=== PATIENT | male | born 1950 | race Caucasian/White ===

== ENCOUNTER 2017-01-30 14:48 | Observation (INO) | payer MEDICAID, MEDICARE ==
[~2017-01-30] VITALS: Ht 188 cm; Wt 117.0 kg
[~2017-01-30 14:48] MED LIST: HYDR12.56 PO; TRAM50 PO
[2017-01-30 15:01] VITALS: BP 196/99; PULSE 63; RESP 17; TEMP 98.4; O2SAT 96
--- NOTE | 2017-01-30 15:11 | PD ---
HPI Chief Complaint: Edema Time Seen by Provider: 15:10 Travel History International Travel<30 days: No Contact w/Intl Traveler<30days: No Traveled to known affect area: No History of Present Illness HPI 67-year-old male came to the emergency room with history of exertional dyspnea which as per the patient has been going on for a long time. He also has history of ankle swelling but is on Lasix that was started by his primary care almost a month ago and says it has been better lately. However patient went to see his primary care today and was sent to the emergency room in order to be checked out for this dyspnea and to rule out congestive heart failure and cardiomegaly. Patient did not have any insurance up until a month or 2 months ago. He saw his primary care few weeks ago and he was started on antihypertensive medication as well as Lasix. Patient has kept a log of all his blood pressure according in past 1 month and seems like it fluctuates between 140s to 180s. He says he is been taking the medications like is supposed to. No history of chest pain or syncopal episode. He has also been to see an car record clerk for his right I lesion which the car record clerk wants to operate on but he is waiting till the patient's blood pressure stabilized. Patient used to be a regular drinker but quit completely 2 weeks ago. He says he is not going through any withdrawal symptoms and feels okay. He was hypertensive in triage. [facility] Past Medical History Narrative Medical List of his past medical, surgical, social and family history was reviewed from the nursing note. Cardiovascular Problems: Yes (HTN) Hypertension: Yes Social History Alcohol Use: No Tobacco Use: No Substance Use: No Allergies-Medications (Allergen,Severity, Reaction): Coded Allergies: No Known Allergies (Unverified , 01/30/17) Comments No known drug allergies. Reported Meds & Prescriptions Reported Meds & Active Scripts Active Reported [BP med] Folic Acid 400 Mcg Tab 1 Mg PO DAILY Lisinopril 20 Mg Tab 20 Mg PO DAILY Potassium Chloride ER (Potassium Chloride) 10 Meq Cap 10 Meq PO DAILY Furosemide 20 Mg Tab 20 Mg PO DAILY Clonidine (Clonidine HCl) 0.1 Mg Tab 0.1 Mg PO BID Narrative Medication List of his home medications reviewed from the nursing note. Review of Systems Except as stated in HPI: all other systems reviewed are Neg Physical Exam Narrative GENERAL: Awake, alert, anxious, no obvious distress SKIN: Focused skin assessment warm/dry. Flushed skin HEAD: Atraumatic. Normocephalic. EYES: Pupils equal and round. No scleral icterus. Pterygium encroaching onto the one third of the cornea temporally with conjunctival injection on the right eye. ENT: No nasal bleeding or discharge. Mucous membranes pink and moist. NECK: Trachea midline. No JVD. CARDIOVASCULAR: Regular rate and rhythm. No murmur appreciated. RESPIRATORY: No accessory muscle use. Clear to auscultation. Breath sounds equal bilaterally. GASTROINTESTINAL: Abdomen soft, non-tender, nondistended. Hepatic and splenic margins not palpable. MUSCULOSKELETAL: No obvious deformities. No clubbing. No cyanosis. Pedal edema. NEUROLOGICAL: Awake and alert. No obvious cranial nerve deficits. Motor grossly within normal limits. Normal speech. PSYCHIATRIC: Appropriate mood and affect; insight and judgment normal. Data Data Last Documented VS Vital Signs Date Time Temp Pulse Resp B/P Pulse Ox O2 Delivery O2 Flow Rate FiO2 01/30/17 16:53 196/99 190/94 01/30/17 15:40 18 98 Room Air 01/30/17 15:01 98.4 63 Orders Electrocardiogram (01/30/17 15:19) Basic Metabolic Panel (Bmp) (01/30/17 15:19) B-Type Natriuretic Peptide (01/30/17 15:19) Ckmb (Isoenzyme) Profile (01/30/17 15:19) Complete Blood Count With Diff (01/30/17 15:19) Magnesium (Mg) (01/30/17 15:19) Prothrombin Time / Inr (Pt) (01/30/17 15:19) Act Partial Throm Time (Ptt) (01/30/17 15:19) Troponin I (01/30/17 15:19) Chest, Single Ap (01/30/17 15:19) Ecg Monitoring (01/30/17 15:19) Bilateral Bp Monitoring (01/30/17 15:19) Iv Access Insert/Monitor (01/30/17 15:19) Oximetry (01/30/17 15:19) Oxygen Administration (01/30/17 15:19) Sodium Chloride 0.9% Flush (Ns Flush) (01/30/17 15:30) Clonidine (Catapres) (01/30/17 17:00) Furosemide Inj (Lasix Inj) (01/30/17 17:00) Admit Order (Ed Use Only) (01/30/17 16:59) Labs Laboratory Tests Test 01/30/17 15:29 White Blood Count 8.0 TH/MM3 Red Blood Count 5.73 MIL/MM3 Hemoglobin 17.8 GM/DL Hematocrit 52.4 % Mean Corpuscular Volume 91.4 FL Mean Corpuscular Hemoglobin 31.1 PG Mean Corpuscular Hemoglobin 34.1 % Concent Red Cell Distribution Width 12.1 % Platelet Count 124 TH/MM3 Mean Platelet Volume 10.5 FL Neutrophils (%) (Auto) 49.3 % Lymphocytes (%) (Auto) 39.1 % Monocytes (%) (Auto) 7.6 % Eosinophils (%) (Auto) 2.9 % Basophils (%) (Auto) 1.1 % Neutrophils # (Auto) 4.0 TH/MM3 Lymphocytes # (Auto) 3.1 TH/MM3 Monocytes # (Auto) 0.6 TH/MM3 Eosinophils # (Auto) 0.2 TH/MM3 Basophils # (Auto) 0.1 TH/MM3 CBC Comment DIFF FINAL Differential Comment Prothrombin Time 12.0 SEC Prothromb Time International 1.1 RATIO Ratio Activated Partial 29.6 SEC Thromboplast Time Sodium Level 143 MEQ/L Potassium Level 3.8 MEQ/L Chloride Level 107 MEQ/L Carbon Dioxide Level 27.2 MEQ/L Anion Gap 9 MEQ/L Blood Urea Nitrogen 13 MG/DL Creatinine 1.10 MG/DL Estimat Glomerular Filtration 66 ML/MIN Rate Random Glucose 97 MG/DL Calcium Level 8.7 MG/DL Magnesium Level 2.8 MG/DL Total Creatine Kinase 62 U/L Troponin I 0.03 NG/ML B-Type Natriuretic Peptide 144 PG/ML MDM Medical Decision Making Medical Screen Exam Complete: Yes Emergency Medical Condition: Yes Medical Record Reviewed: Yes Interpretation(s) Twelve-lead EKG was reviewed by me. Normal sinus rhythm, left axis deviation, lateral T wave inversion and mild ST depression, bradycardia. Heart rate of 59 bpm. Differential Diagnosis CHF, essential hypertension, alcohol withdrawal, left right abnormality Narrative Course 4:41 PM blood test results are back. Troponin is 0.03. His BNP is mildly elevated. Chest x-rays within normal limits. Given his abnormal EKG and no old EKG to compare with I would like this patient to be admitted for at least observation. Awaiting for the hospitalist to call back. 5 PM I had a lengthy discussion with the patient and made him understand about the abnormal EKG and his hypertension. His blood pressure when I was in the room was 203 systolic. Patient understands. I spoke with the hospitalist was accepted the case. Procedures EKG Prior to Arrival: No Diagnosis Primary Impression: Accelerated hypertension Additional Impressions: Abnormal EKG Polycythemia Admitting Information Admitting Physician Requests: Observation Heidi Marrero MD Jan 30, 2017 15:11
[2017-01-30] MEDS ORDERED: FOLI400T PO (15:13)
[2017-01-30] MEDS ORDERED: FURO20TA PO (15:13)
[2017-01-30] MEDS ORDERED: CLON0.1T PO (15:13)
[2017-01-30] MEDS ORDERED: LISI-515 PO (15:13)
[2017-01-30] MEDS ORDERED: POTA10CA PO (15:13)
[2017-01-30] MEDS ORDERED: SODIUM CHLORIDE 0.9% FLUSH 10 ML FLUSH IVF PRN (15:30)
[2017-01-30 15:40] VITALS: RESP 18; O2SAT 98
[2017-01-30 15:51] LABS: BASOPHIL # 0.1 TH/MM3 (0-0.2); BASOPHIL % 1.1 % (0.0-2.0); EOSINOPHIL # 0.2 TH/MM3 (0-0.4); EOSINOPHIL % 2.9 % (0.0-4.0); HEMATOCRIT 52.4 % (39.0-51.0); HEMO FLAGS DIFF FINAL; LYMPH % 39.1 % (9.0-44.0); LYMPHOCYTE # 3.1 TH/MM3 (1.0-4.8); MEAN CELL VOLUME 91.4 FL (80.0-100.0); MEAN CORPUSCULAR HEMOGLOBIN 31.1 PG (27.0-34.0); MEAN CORPUSCULAR HGB CONC 34.1 % (32.0-36.0); MONO % 7.6 % (0.0-8.0); NEUT % 49.3 % (16.0-70.0); PLATELET COUNT 124 TH/MM3 (150-450); RED BLOOD COUNT 5.73 MIL/MM3 (4.50-5.90); RED CELL DISTRIBUTION WIDTH 12.1 % (11.6-17.2)
[2017-01-30 15:58] LABS: POTASSIUM 3.8 MEQ/L (3.5-5.1)
[2017-01-30 16:03] LABS: BICARBONATE 27.2 MEQ/L (21.0-32.0); MAGNESIUM 2.8 MG/DL (1.5-2.5)
[2017-01-30 16:04] LABS: APTT (PATIENT) 29.6 SEC (24.3-30.1); INTERNATIONAL NORMALIZED RATIO 1.1 RATIO
--- NOTE | 2017-01-30 16:14 | RADRPT ---
EXAM DATE/TIME: 01/30/2017 15:48 [facility] COMPARISON: No previous studies available for comparison. INDICATIONS : Patient has had chest pain and swelling in his legs and feet since Friday. MEDICAL HISTORY : None. SURGICAL HISTORY : None. ENCOUNTER: Initial ACUITY: 2 days PAIN SCORE: 10/10 LOCATION: Bilateral chest FINDINGS: A single view of the chest demonstrates the lungs to be symmetrically aerated without evidence of mas s, infiltrate or effusion. The cardiomediastinal contours are unremarkable. Osseous structures are intact. CONCLUSION: Normal examination. Frederick Avery MD on January 30, 2017 at 16:11 Board Certified Radiologist. This report was verified electronically.
[2017-01-30 16:53] VITALS: BP_SYST 190; BP_SYST 196; BP_DIAS 94; BP_DIAS 99
[2017-01-30] MEDS ORDERED: FUROSEMIDE 20 MG/2 ML VIAL IV PUSH ONE (17:00)
[2017-01-30] MEDS ORDERED: cloNIDine HCL 0.1 MG TAB PO ONE (17:00)
[2017-01-30] MEDS ORDERED: BP med (17:36)
[2017-01-30 17:54] VITALS: BP_SYST 198; BP_SYST 200; BP_DIAS 94
[2017-01-30 18:25] VITALS: BP 165/72; PULSE 59; RESP 16; TEMP 98.4; O2SAT 96
[2017-01-30] MEDS ORDERED: ONDANSETRON HCL 4 MG/2 ML VIAL IVP PRN (18:45)
[2017-01-30] MEDS ORDERED: hydrALAZINE HCL 20 MG/ML VIAL IV PUSH PRN (18:45)
[2017-01-30] MEDS ORDERED: hydrALAZINE HCL 20 MG/ML VIAL IV PUSH ONE (18:45)
[2017-01-30] MEDS ORDERED: SODIUM CHLORIDE 0.9% FLUSH 10 ML FLUSH IV FLUSH PRN (18:45)
--- NOTE | 2017-01-30 18:52 | HHI.HP ---
[facility] Non-Staff Admission Diagnosis hypertension, abnormal EKG Diagnoses: Chief Complaint: Elevated blood pressure Travel History International Travel<30 Days: No Contact w/Intl Traveler <30 Da: No Traveled to Known Affected Are: No History of Present Illness Patient is a 67-year-old gentleman with at least 9 months of hypertension. He has been on multiple medications per his primary care doctor's office when his blood pressure was still elevated he was sent to the hospital. He has not had any chest pain or shortness of breath. On arrival here his blood pressure was 196/99 and the patient seemed to respond with clonidine with improvement of his blood pressures. Patient says that he was drinking quite a bit up until 2 weeks ago and was told that alcohol was part of the issue with his blood pressure. He does have a family history of stroke in the family history of hypertension. Patient is recommended for observation hospital due to uncontrolled blood pressure Review of Systems Constitutional: DENIES: Diaphoretic episodes, Fatigue, Fever, Weight gain, Weight loss, Chills, Dizziness, Change in appetite, Night Sweats Endocrine: DENIES: Heat/cold intolerance, Polydipsia, Polyuria, Polyphagia Eyes: DENIES: Blurred vision, Diplopia, Eye inflammation, Eye pain, Vision loss , Photosensitivity, Double Vision Ears, nose, mouth, throat: DENIES: Tinnitus, Hearing loss, Vertigo, Nasal discharge, Oral lesions, Throat pain, Hoarseness, Ear Pain, Running Nose, Epistaxis, Sinus Pain, Toothache, Odynophagia Respiratory: DENIES: Apneas, Cough, Snoring, Wheezing, Hemoptysis, Sputum production, Shortness of breath Cardiovascular: DENIES: Chest pain, Palpitations, Syncope, Dyspnea on Exertion , PND, Lower Extremity Edema, Orthopnea, Claudication Gastrointestinal: DENIES: Abdominal pain, Black stools, Bloody stools, Constipation, Diarrhea, Nausea, Vomiting, Difficulty Swallowing, Anorexia Genitourinary: DENIES: Sexual dysfunction, Urinary frequency, Urinary incontinence, Urgency, Hematuria, Dysuria, Nocturia, Penile Discharge, Testicular Pain, Testicular Swelling Musculoskeletal: DENIES: Joint pain, Muscle aches, Stiffness, Joint Swelling, Back pain, Neck pain Hematologic/lymphatic: DENIES: Bruising, Lymphadenopathy Immunologic/allergic: DENIES: Eczema, Urticaria Neurologic: DENIES: Abnormal gait, Headache, Localized weakness, Paresthesias, Seizures, Speech Problems, Tremor, Poor Balance Psychiatric: DENIES: Anxiety, Confusion, Mood changes, Depression, Hallucinations, Agitation, Suicidal Ideation, Homicidal Ideation, Delusions Past Family Social History Past Medical History Hypertension Past Surgical History Denies Reported Medications Reviewed in the medical record, occasionally takes aspirin Allergies: Coded Allergies: No Known Allergies (Unverified , 01/30/17) Active Ordered Medications Reviewed in the medical record Family History Prostate and colon cancer in his father, mother had stroke and in her 60s Social History No tobacco, occasional marijuana, 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 SKIN: No rashes, ecchymoses or lesions. Cool and dry. HEAD: Atraumatic. Normocephalic. No temporal or scalp tenderness. EYES: Right eye scleral growth, otherwise Pupils equal round and reactive. Extraocular motions intact. No scleral icterus. No injection or drainage. ENT: Nose without bleeding, purulent drainage or septal hematoma. Throat without erythema, tonsillar hypertrophy or exudate. Uvula midline. Airway patent. NECK: Trachea midline. No JVD or lymphadenopathy. Supple, nontender, no meningeal signs. CARDIOVASCULAR: Regular rate and rhythm without murmurs, gallops, or rubs. RESPIRATORY: Clear to auscultation. Breath sounds equal bilaterally. No wheezes , rales, or rhonchi. GASTROINTESTINAL: Abdomen soft, non-tender, nondistended. No hepato-splenomegaly , or palpable masses. No guarding. MUSCULOSKELETAL: Extremities without clubbing, cyanosis, or edema. No joint tenderness, effusion, or edema noted. No calf tenderness. Negative Homans sign bilaterally. NEUROLOGICAL: Awake and alert. Cranial nerves II through XII intact. Motor and sensory grossly within normal limits. Five out of 5 muscle strength in all muscle groups. Normal speech. Laboratory Laboratory Tests Test 01/30/17 15:29 White Blood Count 8.0 Red Blood Count 5.73 Hemoglobin 17.8 Hematocrit 52.4 Mean Corpuscular Volume 91.4 Mean Corpuscular Hemoglobin 31.1 Mean Corpuscular Hemoglobin 34.1 Concent Red Cell Distribution Width 12.1 Platelet Count 124 Mean Platelet Volume 10.5 Neutrophils (%) (Auto) 49.3 Lymphocytes (%) (Auto) 39.1 Monocytes (%) (Auto) 7.6 Eosinophils (%) (Auto) 2.9 Basophils (%) (Auto) 1.1 Neutrophils # (Auto) 4.0 Lymphocytes # (Auto) 3.1 Monocytes # (Auto) 0.6 Eosinophils # (Auto) 0.2 Basophils # (Auto) 0.1 CBC Comment DIFF FINAL Differential Comment Prothrombin Time 12.0 Prothromb Time International 1.1 Ratio Activated Partial 29.6 Thromboplast Time Sodium Level 143 Potassium Level 3.8 Chloride Level 107 Carbon Dioxide Level 27.2 Anion Gap 9 Blood Urea Nitrogen 13 Creatinine 1.10 Estimat Glomerular Filtration 66 Rate Random Glucose 97 Calcium Level 8.7 Magnesium Level 2.8 Total Creatine Kinase 62 Troponin I 0.03 B-Type Natriuretic Peptide 144 Result Diagram: 01/30/17 1529 01/30/17 1529 Imaging Last Impressions Chest X-Ray 01/30/17 1519 Signed Impressions: Service Date/Time: January 15:48 - CONCLUSION: Normal examination. Frederick Avery MD Assessment and Plan Problem List: (1) Accelerated hypertension ICD Code: I10 Status: Acute Plan: Continue with medical management of hypertension Will add IV hydralazine and continue home medications Patient education on follow-up echocardiogram Anai Denise MD Jan 30, 2017 18:52
[2017-01-30 20:00] VITALS: BP 136/72; PULSE 66; RESP 18; TEMP 97.2; O2SAT 96
[2017-01-30] MEDS: cloNIDine HCL 0.1 MG TAB PO SCH (21:07)
[2017-01-30] MEDS: SODIUM CHLORIDE 0.9% FLUSH 10 ML FLUSH IV FLUSH SCH (21:07)
[2017-01-31] VITALS: BP 145/73; PULSE 64; RESP 18; TEMP 97.7; O2SAT 96
--- NOTE | 2017-01-31 05:08 | EKG ---
Date Performed: 01/30/2017 Time Performed: 15:25:52 PTAGE: 67 years EKG: SINUS BRADYCARDIA BORDERLINE LEFT AXIS DEVIATION Nonspecific ST-T wave changes ABNORMAL ECG NO PREVIOUS TRACING DOCTOR: Kirit Joseph Interpretating Date/Time 01/31/2017 05:07:20
[2017-01-31 06:03] LABS: AUTOMATED NEUTROPHIL # 2.7 TH/MM3 (1.8-7.7); BASOPHIL # 0.2 TH/MM3 (0-0.2); BASOPHIL % 3.6 % (0.0-2.0); EOSINOPHIL # 0.2 TH/MM3 (0-0.4); EOSINOPHIL % 3.6 % (0.0-4.0); HEMATOCRIT 51.1 % (39.0-51.0); HEMO FLAGS DIFF FINAL; LYMPH % 45.5 % (9.0-44.0); LYMPHOCYTE # 3.2 TH/MM3 (1.0-4.8); MEAN CELL VOLUME 91.5 FL (80.0-100.0); MEAN CORPUSCULAR HEMOGLOBIN 30.8 PG (27.0-34.0); MEAN CORPUSCULAR HGB CONC 33.7 % (32.0-36.0); MONO % 7.9 % (0.0-8.0); NEUT % 39.4 % (16.0-70.0); PLATELET COUNT 107 TH/MM3 (150-450); RED BLOOD COUNT 5.58 MIL/MM3 (4.50-5.90); RED CELL DISTRIBUTION WIDTH 12.3 % (11.6-17.2); WHITE BLOOD COUNT 6.8 TH/MM3 (4.0-11.0)
[2017-01-31 06:10] LABS: POTASSIUM 3.6 MEQ/L (3.5-5.1)
[2017-01-31 06:14] LABS: BICARBONATE 27.5 MEQ/L (21.0-32.0)
[2017-01-31 08:00] VITALS: BP 160/102; PULSE 59; RESP 20; TEMP 96.9; O2SAT 96
[2017-01-31] MEDS ORDERED: FUROSEMIDE 20 MG TAB PO SCH (09:00)
[2017-01-31] MEDS ORDERED: LISINOPRIL 20 MG TAB PO SCH (09:00)
[2017-01-31] MEDS: SODIUM CHLORIDE 0.9% FLUSH 10 ML FLUSH IV FLUSH SCH (09:00)
[2017-01-31] MEDS: cloNIDine HCL 0.1 MG TAB PO SCH (09:28)
[2017-01-31 12:00] VITALS: BP 150/100; PULSE 52; RESP 18; TEMP 97; O2SAT 95
--- NOTE | 2017-01-31 12:37 | HHI.DCPOC ---
Discharge Care Plan Diagnosis: (1) Accelerated hypertension (2) Abnormal EKG Goals to Promote Your Health * To prevent worsening of your condition and complications * To maintain your health at the optimal level Directions to Meet Your Goals Take your medications as prescribed Follow your dietary instruction Follow activity as directed Keep your appointments as scheduled Take your immunizations and boosters as scheduled If your symptoms worsen call your PCP, if no PCP go to Urgent Care Center or Emergency Room Smoking is Dangerous to Your Health. Avoid second hand smoke Call the 24-hour hour crisis hotline for domestic abuse at Anai Denise MD Jan 31, 2017 12:36
--- NOTE | 2017-01-31 12:38 | HHI.DS ---
Discharge Summary Admission Date Jan 30, 2017 at 17:09 Discharge Date: Jan 31, 2017 Admitting Diagnosis hypertension, abnormal EKG (1) Accelerated hypertension ICD Code: I10 Procedures None Brief History - From Admission Patient is a 67-year-old gentleman with at least 9 months of hypertension. He has been on multiple medications per his primary care doctor's office when his blood pressure was still elevated he was sent to the hospital. He has not had any chest pain or shortness of breath. On arrival here his blood pressure was 196/99 and the patient seemed to respond with clonidine with improvement of his blood pressures. Patient says that he was drinking quite a bit up until 2 weeks ago and was told that alcohol was part of the issue with his blood pressure. He does have a family history of stroke in the family history of hypertension. Patient is recommended for observation hospital due to uncontrolled blood pressure CBC/BMP: 01/31/17 0526 01/31/17 0526 Significant Findings Laboratory Tests Test 01/30/17 01/31/17 15:29 05:26 Hemoglobin 17.8 GM/DL 17.2 GM/DL (13.0-17.0) (13.0-17.0) Hematocrit 52.4 % 51.1 % (39.0-51.0) (39.0-51.0) Platelet Count 124 TH/MM3 107 TH/MM3 (150-450) (150-450) Prothrombin Time 12.0 SEC (9.8-11.6) Estimat Glomerular Filtration 66 ML/MIN (>89) 74 ML/MIN (>89) Rate Magnesium Level 2.8 MG/DL (1.5-2.5) B-Type Natriuretic Peptide 144 PG/ML (0-100) Mean Platelet Volume 11.2 FL (7.0-11.0) Lymphocytes (%) (Auto) 45.5 % (9.0-44.0) Basophils (%) (Auto) 3.6 % (0.0-2.0) Chloride Level 108 MEQ/L (98-107) Calcium Level 8.4 MG/DL (8.5-10.1) PE at Discharge GENERAL: This is a well-nourished, well-developed patient, in no apparent distress. CARDIOVASCULAR: Regular rate and rhythm without murmurs, gallops, or rubs. RESPIRATORY: Clear to auscultation. Breath sounds equal bilaterally. No wheezes , rales, or rhonchi. GASTROINTESTINAL: Abdomen soft, non-tender, nondistended. Normal active bowel sounds MUSCULOSKELETAL: Extremities without clubbing, cyanosis, or edema. NEURO: Alert & Oriented x4 to person, place, time, situation. Moves all ext x4 Pt update on day of discharge In today in follow-up for blood pressure management, blood pressure improved Hospital Course Patient is a 67-year-old gentleman with uncontrolled hypertension who was evaluated for the same. He did have improvement with this the addition of hydralazine IV and on his home medications he continued to improve. Patient was very nervous and anxious and is expected to have an outpatient echocardiogram Pt Condition on Discharge: Good Discharge Disposition: Discharge Home Discharge Time: > 30 minutes Discharge Instructions DIET: Follow Instructions for: Heart Healthy Diet, Gastric Bypass Follow up Referrals: PCP Follow-up - 1 Week New Orders: 2D ECHO - 1 Week @ [facility] Continued Medications: Clonidine (Clonidine) 0.1 Mg Tab 0.1 MG PO BID Blood Pressure Management #60 Ref 0 TAB Folic Acid (Folic Acid) 400 Mcg Tab 1 MG PO DAILY Nutritional Supplement Ref 0 TAB Furosemide (Furosemide) 20 Mg Tab 20 MG PO DAILY #30 Ref 0 TAB Lisinopril (Lisinopril) 20 Mg Tab 20 MG PO DAILY #30 Ref 0 TAB Potassium Chloride ER (Potassium Chloride ER) 10 Meq Cap 10 MEQ PO DAILY Electrolyte Replacement #30 Ref 0 CAP ([BP med]) Anai Denise MD Jan 31, 2017 12:38
== END 2017-01-31 14:05 | disposition home or self-care (01) ==
LOC: PHED 14:48 → PHEDA 17:09 → PH3A 18:19
PROVIDERS: ADMIT Hospitalist; ATTEND Hospitalist
DX: I10 Essential (primary) hypertension (principal); R94.31 Abnormal electrocardiogram [ECG] [EKG]; R60.0 Localized edema; R06.00 Dyspnea, unspecified; D75.1 Secondary polycythemia; Z79.899 Other long term (current) drug therapy
CPT/HCPCS: 71010; 80048; 82550; 83735; 83880; 84484; 85025; 85610; 85730; 93005; 99285; G0378; J0360; J1940

== ENCOUNTER 2017-02-14 06:39 | Observation (INO) | payer OTHER ==
[2017-02-14] VITALS (8 sets, daily range): BP systolic 132–222; BP diastolic 68–110; PULSE 53–79; RESP 16–26; TEMP 98–98.4; O2SAT 96–99
[~2017-02-14 06:39] MED LIST changes: +BP med; +CLON0.1T PO; +FOLI400T PO; +FURO20TA PO; -HYDR12.56 PO; +LISI-515 PO; +POTA10CA PO; -TRAM50 PO
[2017-02-14] MEDS ORDERED: FAMOTIDINE 20 MG/2 ML VIAL IV PUSH ONE (06:45)
[2017-02-14] MEDS ORDERED: SODIUM CHLORIDE 0.9% FLUSH 10 ML FLUSH IV FLUSH PRN ×2 (06:45→09:15)
[2017-02-14] MEDS ORDERED: methylPREDNISolone SOD SUCC 125 MG/2 ML VIAL IVP ONE (06:45)
[2017-02-14] MEDS ORDERED: diphenhydrAMINE HCL 50 MG/ML VIAL IVP ONE (06:45)
--- NOTE | 2017-02-14 06:48 | PD ---
HPI Chief Complaint: allergic reaction Time Seen by Provider: 06:45 Travel History International Travel<30 days: No Contact w/Intl Traveler<30days: No Traveled to known affect area: No History of Present Illness HPI 67-year-old male presents to the emergency department by private transportation for complaint of swelling of the time. Patient has noted increasing swelling since 5 AM after he awakened. Patient states she went to bed approximately 10 PM feeling well. Patient does take recently prescribed lisinopril. Patient recently diagnosed with poorly controlled hypertension. No report of CAD although reportedly has had an abnormal EKG in the past. Patient does not report any lip swelling has had no stridor. Patient does note difficulty swallowing his own saliva. Patient denies any chest pain near-syncope or syncope. No prior history of allergic reaction to medications. PFSH Past Medical History Arthritis: Yes Heart Rhythm Problems: No Cancer: Yes (father colon cancer) Cardiovascular Problems: Yes (HTN) High Cholesterol: Yes Chest Pain: No Cerebrovascular Accident: No Diminished Hearing: No Genitourinary: No Hypertension: Yes Neurologic: No Psychiatric: No Reproductive: No Respiratory: No Immunizations Current: Yes Migraines: Yes Seizures: No Social History Alcohol Use: No (QUIT 2 WEEKS AGO) Tobacco Use: No Substance Use: Yes Allergies-Medications (Allergen,Severity, Reaction): Coded Allergies: No Known Allergies (Unverified , 01/30/17) Reported Meds & Prescriptions Reported Meds & Active Scripts Active Reported Metoprolol Tartrate 50 Mg Tab Unknown Dose PO BID Hydrochlorothiazide 12.5 Mg Cap 12.5 Mg PO DAILY Tramadol (Tramadol HCl) 50 Mg Tab 50 Mg PO Q6H PRN Amlodipine (Amlodipine Besylate) 2.5 Mg Tab 1 Mg PO DAILY [BP med] Folic Acid 400 Mcg Tab 1 Mg PO DAILY Lisinopril 20 Mg Tab 20 Mg PO DAILY Potassium Chloride ER (Potassium Chloride) 10 Meq Cap 10 Meq PO DAILY Furosemide 20 Mg Tab 20 Mg PO DAILY Clonidine (Clonidine HCl) 0.1 Mg Tab 0.1 Mg PO BID Review of Systems Except as stated in HPI: all other systems reviewed are Neg General / Constitutional: No: Fever, Chills HENT: No: Congestion Cardiovascular: No: Chest Pain or Discomfort Respiratory: No: Shortness of Breath, Stridor Gastrointestinal: No: Nausea, Vomiting, Abdominal Pain Genitourinary: No: Flank Pain Musculoskeletal: No: Myalgias, Arthralgias Skin: No Rash, No Hives Neurologic: No: Change in Mentation Psychiatric: No: Anxiety Hematologic/Lymphatic: No: Easy Bruising Physical Exam Narrative GENERAL: Well-developed well-nourished male in no acute respiratory distress but notable swelling of the tongue; marked hypertension triage vital signs SKIN: Warm and dry. No urticaria. HEAD: Normocephalic. EYES: No scleral icterus. No injection or drainage. ENT: Patient is able to protect airway however there is angioedema affecting the right side of the tongue NECK: Supple, trachea midline. No JVD or lymphadenopathy. CARDIOVASCULAR: Regular rate and rhythm without murmurs, gallops, or rubs. RESPIRATORY: Breath sounds equal bilaterally. No accessory muscle use. GASTROINTESTINAL: Abdomen soft, non-tender, nondistended. MUSCULOSKELETAL: No cyanosis, or edema. BACK: Nontender without obvious deformity. No CVA tenderness. Data Data Last Documented VS Vital Signs Date Time Temp Pulse Resp B/P Pulse Ox O2 Delivery O2 Flow Rate FiO2 02/14/17 06:45 65 18 222/110 97 Orders Ecg Monitoring (02/14/17 06:45) Iv Access Insert/Monitor (02/14/17 06:45) Oximetry (02/14/17 06:45) Diphenhydramine Inj (Benadryl Inj) (02/14/17 06:45) Methylprednisolone So Succ Inj (Solumedr (02/14/17 06:45) Famotidine Inj (Pepcid Inj) (02/14/17 06:45) Sodium Chloride 0.9% Flush (Ns Flush) (02/14/17 06:45) Hydralazine Inj (Apresoline Inj) (02/14/17 07:00) MDM Medical Decision Making Medical Screen Exam Complete: Yes Emergency Medical Condition: Yes Medical Record Reviewed: Yes Differential Diagnosis angioedema, allergic reaction, anaphylaxis; abscess Narrative Course Patient placed on personnel monitor IV access obtained specimens collected and sent for resulting patient administered Solu-Medrol 100 mg IV Benadryl 25 mg IV and Pepcid 20 mg IV; blood pressure obtained 229/119 @ 0705 care signed over to Dr Brown Diagnosis Primary Impression: Angioedema Qualified Code: T78.3XXA - Angioedema, initial encounter Additional Impression: HTN (hypertension) Suzy Lyn MD Feb 14, 2017 06:48 Suzy Lyn MD Feb 14, 2017 06:48
[2017-02-14] MEDS ORDERED: AMLO2.5T PO (06:58)
[2017-02-14] MEDS ORDERED: METO50TA PO (06:58)
[2017-02-14] MEDS ORDERED: HYDR12.57 PO (06:58)
[2017-02-14] MEDS ORDERED: TRAM50TA PO (06:58)
[2017-02-14] MEDS ORDERED: hydrALAZINE HCL 20 MG/ML VIAL IV PUSH ONE (07:00)
--- NOTE | 2017-02-14 07:18 | PD ---
Physical Exam Date Seen by Provider: Feb 14, 2017 Data Data Last Documented VS Vital Signs Date Time Temp Pulse Resp B/P Pulse Ox O2 Delivery O2 Flow Rate FiO2 02/14/17 07:45 53 16 189/91 99 Room Air Orders Ecg Monitoring (02/14/17 06:45) Iv Access Insert/Monitor (02/14/17 06:45) Oximetry (02/14/17 06:45) Diphenhydramine Inj (Benadryl Inj) (02/14/17 06:45) Methylprednisolone So Succ Inj (Solumedr (02/14/17 06:45) Famotidine Inj (Pepcid Inj) (02/14/17 06:45) Sodium Chloride 0.9% Flush (Ns Flush) (02/14/17 06:45) Hydralazine Inj (Apresoline Inj) (02/14/17 07:00) Admit Order (Ed Use Only) (02/14/17 08:11) MDM Medical Record Reviewed: Yes Supervised Visit with HAWK: No Interpretation(s) Vital Signs Date Time Temp Pulse Resp B/P Pulse Ox O2 Delivery O2 Flow Rate FiO2 02/14/17 06:45 65 18 222/110 97 Differential Diagnosis Differential includes angioedema, allergic reaction, anaphylaxis Narrative Course Patient was signed out to me by Dr. Lyn at change of shift. Patient is a 67-year-old male who was recently admitted to the hospital for accelerated hypertension and is currently taking metoprolol, hydrochlorothiazide , amlodipine, lisinopril 20mg daily, furosemide, clonidine, presents to ER with c/o of tongue swelling. Patient reports that he took his blood pressure medications last night around 7- 9 PM, reports that he was feeling well beginning last night. Reports that he woke up this morning and noticed swelling to the right side of tongue. Patient reports that symptoms progressed over the morning - he is here for evaluation of angioedema. Patient with no c/o at this time. He has received Solu-Medrol, Pepcid and Benadryl. Plan to observe patient in the emergency room and ultimately will observe patient in the hospital. Patient re-evaluated - he does have swelling to the right side of his tongue, he has swelling his own secretions this time, posterior pharynx open and patent with no airway swelling. Patient re-evaluated, patient reports decreased sensation of tongue swelling at this time, his airways are open and patent, he does continue to have swelling to right side of tongue - though swelling has decreased since initial presentation to ER. Plan to admit for observation on the intermediate care unit. discussed need for him to stop using lisinopril as I do think that this is the medicine causing his symptoms case reviewed with Dr. Piper who accepts pt to service, patient will require freq obs and steroids q 6 hours 0910: patient reevaluated, patient reports that he is feeling much better at this time, reports significant decrease in tongue swelling while being observed in the ER Diagnosis Primary Impression: Angioedema Qualified Code: T78.3XXA - Angioedema, initial encounter Additional Impression: HTN (hypertension) Admitting Information Admitting Physician Requests: Observation Daly Brown DO Feb 14, 2017 07:18
[2017-02-14] MEDS ORDERED: SODIUM CHLOR 0.9% 1000 ML INJ 1,000 ML IV SCH (09:14)
[2017-02-14] MEDS ORDERED: LACTULOSE SYRUP 20 GM/30 ML CUP PO PRN (09:15)
[2017-02-14] MEDS ORDERED: ACETAMINOPHEN 325 MG TAB PO PRN (09:15)
[2017-02-14] MEDS ORDERED: ONDANSETRON HCL 4 MG/2 ML VIAL IVP PRN (09:15)
[2017-02-14] MEDS ORDERED: BISACODYL 10 MG SUPP RECTAL PRN (09:15)
[2017-02-14] MEDS ORDERED: traMADol HCL 50 MG TAB PO PRN (09:15)
[2017-02-14] MEDS ORDERED: MAGNESIUM HYDROXIDE SUSP 30 ML CUP PO PRN (09:15)
[2017-02-14] MEDS ORDERED: SENNOSIDES 8.6 MG TAB PO PRN (09:15)
[2017-02-14 10:22] LABS: AUTOMATED NEUTROPHIL # 4.3 TH/MM3 (1.8-7.7); BASOPHIL # 0.1 TH/MM3 (0-0.2); BASOPHIL % 1.8 % (0.0-2.0); EOSINOPHIL % 0.8 % (0.0-4.0); HEMATOCRIT 54.5 % (39.0-51.0); HEMO FLAGS DIFF FINAL; LYMPH % 28.1 % (9.0-44.0); LYMPHOCYTE # 1.7 TH/MM3 (1.0-4.8); MEAN CELL VOLUME 91.2 FL (80.0-100.0); MEAN CORPUSCULAR HEMOGLOBIN 30.3 PG (27.0-34.0); MEAN CORPUSCULAR HGB CONC 33.3 % (32.0-36.0); NEUT % 67.3 % (16.0-70.0); PLATELET COUNT 118 TH/MM3 (150-450); RED BLOOD COUNT 5.97 MIL/MM3 (4.50-5.90); RED CELL DISTRIBUTION WIDTH 12.3 % (11.6-17.2); WHITE BLOOD COUNT 6.2 TH/MM3 (4.0-11.0)
[2017-02-14 10:31] LABS: CHLORIDE 107 MEQ/L (98-107); POTASSIUM 3.5 MEQ/L (3.5-5.1); SODIUM (NA) 141 MEQ/L (136-145)
[2017-02-14 10:35] LABS: ANION GAP 8 MEQ/L (5-15); BICARBONATE 25.6 MEQ/L (21.0-32.0); BLOOD UREA NITROGEN 11 MG/DL (7-18)
[2017-02-14 10:38] LABS: ALT (GPT) 62 U/L (12-78); AST (GOT) 42 U/L (15-37); GLOMERULAR FILTRATION RATE 74 ML/MIN (>89)
[2017-02-14 10:40] LABS: TOTAL BILIRUBIN ADULT 0.9 MG/DL (0.2-1.0)
[2017-02-14 10:41] LABS: ALKALINE PHOSPHATASE 84 U/L (45-117)
[2017-02-14] MEDS: FOLIC ACID 1 MG TAB PO SCH (11:30)
[2017-02-14] MEDS: cloNIDine HCL 0.1 MG TAB PO SCH ×2 (11:31→19:57)
[2017-02-14] MEDS: POTASSIUM CHLORIDE 10 MEQ CAP PO SCH (11:34)
--- NOTE | 2017-02-14 12:56 | HHI.HP ---
[facility] Service [facility] Primary Care Physician Non-Staff Admission Diagnosis Diagnoses: Travel History International Travel<30 Days: No Contact w/Intl Traveler <30 Da: No Traveled to Known Affected Are: No Past Family Social History Allergies: Coded Allergies: Lisinopril (Verified Allergy, Severe, Angioedema , 02/14/17) Physical Exam Vital Signs Vital Signs Date Time Temp Pulse Resp B/P Pulse Ox O2 Delivery O2 Flow Rate FiO2 02/14/17 09:21 98.4 70 26 186/84 02/14/17 07:45 53 16 189/91 99 Room Air 02/14/17 07:00 99 Room Air 02/14/17 06:45 65 18 222/110 97 Result Diagram: 02/14/17 0945 02/14/1745 Physician Certification Order for Inpatient Services The services are ordered in accordance with Medicare regulations or non- Medicare payer requirements, as applicable. In the case of services not specified as inpatient-only, they are appropriately provided as inpatient services in accordance with the 2-midnight benchmark. days is the estimated time the patient will need to remain in the hospital, assuming treatment plan goals are met and no additional complications. Luis Carlos Esposito MD Feb 14, 2017 12:56 Allergies: Coded Allergies: Lisinopril (Verified Allergy, Severe, Angioedema , 02/14/17) Active Ordered Medications Current Medications Medications (Trade) Dose Ordered Sig/Zulema Route Start Time Stop Time Status Last Admin (Catapres) 0.1 mg BID PO 02/14/17 10:00 02/14/17 11:31 (Folate) 1 mg DAILY PO 02/14/17 10:00 02/14/17 11:30 (KCl) 10 meq DAILY PO 02/14/17 10:00 02/14/17 11:34 Tramadol HCl 50 mg 50 mg Q6H PRN PO 02/14/17 09:15 (NS 1000 ml Inj) 1,000 ml @ 100 mls/hr Q10H IV 02/14/17 09:14 02/14/17 11:29 (NS Flush) 2 ml UNSCH PRN IV FLUSH 02/14/17 09:15 (NS Flush) 2 ml BID IV FLUSH 02/14/17 21:00 (Tylenol) 650 mg Q4H PRN PO 02/14/17 09:15 (Zofran Inj) 4 mg Q6H PRN IVP 02/14/17 09:15 (Tracee-Colace) 1 tab BID PO 02/14/17 21:00 (Milk Of Magnesia Liq) 30 ml Q12H PRN PO 02/14/17 09:15 (Senokot) 17.2 mg Q12H PRN PO 02/14/17 09:15 (Dulcolax Supp) 10 mg DAILY PRN RECTAL 02/14/17 09:15 (Lactulose Liq) 30 ml DAILY PRN PO 02/14/17 09:15 Family History Denies family history of diabetes. Patient is unsure but he thinks that there might of been hypertension in his family. Social History Never smoked. The patient states that he used to drink but quit drinking 5-6 months ago. The patient smokes marijuana occasionally. The patient is and has no children. Physical Exam Vital Signs Vital Signs Date Time Temp Pulse Resp B/P Pulse Ox O2 Delivery O2 Flow Rate FiO2 02/14/17 09:21 98.4 70 26 186/84 02/14/17 07:45 53 16 189/91 99 Room Air 02/14/17 07:00 99 Room Air 02/14/17 06:45 65 18 222/110 97 Physical Exam GENERAL: This is a well-nourished, well-developed patient, in no apparent distress. SKIN: No rashes, ecchymoses or lesions. Cool and dry. HEAD: Atraumatic. Normocephalic. No temporal or scalp tenderness. EYES: Pupils equal round and reactive. Extraocular motions intact. No scleral icterus. No injection or drainage. ENT: Nose without bleeding, purulent drainage or septal hematoma. Throat without erythema, tonsillar hypertrophy or exudate. Uvula midline. Airway patent. Right side of the tongue is swollen. NECK: Trachea midline. No JVD or lymphadenopathy. Supple, nontender, no meningeal signs. CARDIOVASCULAR: Regular rate and rhythm without murmurs, gallops, or rubs. RESPIRATORY: Clear to auscultation. Breath sounds equal bilaterally. No wheezes , rales, or rhonchi. GASTROINTESTINAL: Abdomen soft, non-tender, nondistended. No hepato-splenomegaly , or palpable masses. No guarding. MUSCULOSKELETAL: Extremities without clubbing, cyanosis, or edema. No joint tenderness, effusion, or edema noted. No calf tenderness. Negative Homans sign bilaterally. NEUROLOGICAL: Awake and alert. Cranial nerves II through XII intact. Motor and sensory grossly within normal limits. Five out of 5 muscle strength in all muscle groups. Normal speech. Laboratory Laboratory Tests Test 02/14/17 09:45 White Blood Count 6.2 Red Blood Count 5.97 Hemoglobin 18.1 Hematocrit 54.5 Mean Corpuscular Volume 91.2 Mean Corpuscular Hemoglobin 30.3 Mean Corpuscular Hemoglobin 33.3 Concent Red Cell Distribution Width 12.3 Platelet Count 118 Mean Platelet Volume 11.1 Neutrophils (%) (Auto) 67.3 Lymphocytes (%) (Auto) 28.1 Monocytes (%) (Auto) 2.0 Eosinophils (%) (Auto) 0.8 Basophils (%) (Auto) 1.8 Neutrophils # (Auto) 4.3 Lymphocytes # (Auto) 1.7 Monocytes # (Auto) 0.1 Eosinophils # (Auto) 0.0 Basophils # (Auto) 0.1 CBC Comment DIFF FINAL Differential Comment Erythrocyte Sedimentation Rate 1 Sodium Level 141 Potassium Level 3.5 Chloride Level 107 Carbon Dioxide Level 25.6 Anion Gap 8 Blood Urea Nitrogen 11 Creatinine 1.00 Estimat Glomerular Filtration 74 Rate Random Glucose 132 Calcium Level 9.1 Total Bilirubin 0.9 Aspartate Amino Transf 42 (AST/SGOT) Alanine Aminotransferase 62 (ALT/SGPT) Alkaline Phosphatase 84 C-Reactive Protein 0.37 Total Protein 8.2 Albumin 3.8 Complement C4 20 Result Diagram: 02/14/1745 02/14/1745 Assessment and Plan Problem List: (1) Angioedema ICD Code: T78.3XXA Status: Acute Plan: With the patient outpatient observation the medical floor Continue supplemental oxygen to keep oxygen saturations more than 92% The patient status post IV Solu Medrol administration the urgency department. I will start the patient on prednisone taper Edema seems to be resolving, continue supportive therapy. check C4 (2) Accelerated essential hypertension ICD Code: I10 Status: Acute Plan: Patient has a systolic blood pressure very elevated into the 180s. Stop lisinopril Continue other antihypertensive medications taken at home. I will increase the dose of amlodipine from 2.5 minutes by mouth daily to 10 mg by mouth daily. Start the patient on Cardura on 4 mg by mouth daily. (3) Polycythemia ICD Code: D75.1 Status: Acute Plan: To be secondary to hemoconcentration. However given the concomitant presentation of accelerated hypertension, erythropoietin producing neoplasms should also be considered. I will check erythropoietin and fariba 2 mutation. I will start the patient on aspirin. Assessment and Plan DVT prophylaxis: SCDs, Lovenox subcutaneously. Code Status full code Discussed Condition With Patient. Physician Certification Order for Inpatient Services The services are ordered in accordance with Medicare regulations or non- Medicare payer requirements, as applicable. In the case of services not specified as inpatient-only, they are appropriately provided as inpatient services in accordance with the 2-midnight benchmark. days is the estimated time the patient will need to remain in the hospital, assuming treatment plan goals are met and no additional complications. Problem Qualifiers (1) Angioedema: Qualified Code: T78.3XXA - Angioedema, initial encounter Luis Carlos Esposito MD Feb 14, 2017 12:56
--- NOTE | 2017-02-14 14:48 | HHI.HP ---
[facility] Admission Diagnosis Angioedema Diagnoses: (1) Angioedema (2) Accelerated essential hypertension (3) Polycythemia Travel History International Travel<30 Days: No Contact w/Intl Traveler <30 Da: No Traveled to Known Affected Are: No History of Present Illness This is a 67-year-old male with past medical history significant for hypertension who states that recently was started on many blood pressure medications prior to an elective eye surgery. The patient states that he was started on many medications including lisinopril which she started taking on January 02. The patient presents complaining of tongue swelling. He states he woke up around 5 AM with tongue swelling however he denies any shortness of breath, denies chest pain denies palpitations, denies dizziness, denies fevers or chills, denies diarrhea. He states that he has never had a similar reaction in the past. The patient was seen in emergency department and as per ED records the patient was thought to have a large edema and given IV steroids. Patient states that the tongue swelling localized on the right side of his tongue is improving and denies shortness of breath currently. Past Family Social History Past Medical History Hypertension The region in the right eye Past Surgical History Right eye surgery on 02/06 Allergies: Coded Allergies: Lisinopril (Verified Allergy, Severe, Angioedema , 02/14/17) Family History Denies family history of diabetes. Patient is unsure but he thinks that there might of been hypertension in his family. Social History Never smoked. The patient states that he used to drink but quit drinking 5-6 months ago. The patient smokes marijuana occasionally. The patient is and has no children. Physical Exam Vital Signs Vital Signs Date Time Temp Pulse Resp B/P Pulse Ox O2 Delivery O2 Flow Rate FiO2 02/14/17 13:21 98.2 77 21 175/88 02/14/17 09:21 98.4 70 26 186/84 02/14/17 07:45 53 16 189/91 99 Room Air 02/14/17 07:00 99 Room Air 02/14/17 06:45 65 18 222/110 97 Physical Exam GENERAL: This is a well-nourished, well-developed patient, in no apparent distress. SKIN: No rashes, ecchymoses or lesions. Cool and dry. HEAD: Atraumatic. Normocephalic. No temporal or scalp tenderness. EYES: Pupils equal round and reactive. Extraocular motions intact. No scleral icterus. No injection or drainage. ENT: Nose without bleeding, purulent drainage or septal hematoma. Throat without erythema, tonsillar hypertrophy or exudate. Uvula midline. Airway patent. NECK: Trachea midline. No JVD or lymphadenopathy. Supple, nontender, no meningeal signs. CARDIOVASCULAR: Regular rate and rhythm without murmurs, gallops, or rubs. RESPIRATORY: Clear to auscultation. Breath sounds equal bilaterally. No wheezes , rales, or rhonchi. GASTROINTESTINAL: Abdomen soft, non-tender, nondistended. No hepato-splenomegaly , or palpable masses. No guarding. MUSCULOSKELETAL: Extremities without clubbing, cyanosis, or edema. No joint tenderness, effusion, or edema noted. No calf tenderness. Negative Homans sign bilaterally. NEUROLOGICAL: Awake and alert. Cranial nerves II through XII intact. Motor and sensory grossly within normal limits. Five out of 5 muscle strength in all muscle groups. Normal speech. Laboratory Laboratory Tests Test 02/14/17 09:45 White Blood Count 6.2 Red Blood Count 5.97 Hemoglobin 18.1 Hematocrit 54.5 Mean Corpuscular Volume 91.2 Mean Corpuscular Hemoglobin 30.3 Mean Corpuscular Hemoglobin 33.3 Concent Red Cell Distribution Width 12.3 Platelet Count 118 Mean Platelet Volume 11.1 Neutrophils (%) (Auto) 67.3 Lymphocytes (%) (Auto) 28.1 Monocytes (%) (Auto) 2.0 Eosinophils (%) (Auto) 0.8 Basophils (%) (Auto) 1.8 Neutrophils # (Auto) 4.3 Lymphocytes # (Auto) 1.7 Monocytes # (Auto) 0.1 Eosinophils # (Auto) 0.0 Basophils # (Auto) 0.1 CBC Comment DIFF FINAL Differential Comment Erythrocyte Sedimentation Rate 1 Sodium Level 141 Potassium Level 3.5 Chloride Level 107 Carbon Dioxide Level 25.6 Anion Gap 8 Blood Urea Nitrogen 11 Creatinine 1.00 Estimat Glomerular Filtration 74 Rate Random Glucose 132 Calcium Level 9.1 Total Bilirubin 0.9 Aspartate Amino Transf 42 (AST/SGOT) Alanine Aminotransferase 62 (ALT/SGPT) Alkaline Phosphatase 84 C-Reactive Protein 0.37 Total Protein 8.2 Albumin 3.8 Complement C4 20 Result Diagram: 02/14/1745 02/14/1745 Assessment and Plan Problem List: (1) Angioedema ICD Code: T78.3XXA Status: Acute Plan: With the patient outpatient observation the medical floor Continue supplemental oxygen to keep oxygen saturations more than 92% The patient status post IV Solu Medrol administration the urgency department. I will start the patient on prednisone taper Edema seems to be resolving, continue supportive therapy. check C4 (2) Accelerated essential hypertension ICD Code: I10 Status: Acute Plan: Patient has a systolic blood pressure very elevated into the 180s. Stop lisinopril Continue other antihypertensive medications taken at home. I will increase the dose of amlodipine from 2.5 minutes by mouth daily to 10 mg by mouth daily. Start the patient on Cardura on 4 mg by mouth daily. (3) Polycythemia ICD Code: D75.1 Status: Acute Plan: To be secondary to hemoconcentration. However given the concomitant presentation of accelerated hypertension, erythropoietin producing neoplasms should also be considered. I will check erythropoietin and fariba 2 mutation. I will start the patient on aspirin. Problem Qualifiers (1) Angioedema: Qualified Code: T78.3XXA - Angioedema, initial encounter Luis Carlos Esposito MD Feb 14, 2017 14:48
[2017-02-14] MEDS: DOXAZOSIN MESYLATE 4 MG TAB PO SCH (16:48)
[2017-02-14 16:55] LABS: HEMOGLOBIN A1a 0.9 %; HEMOGLOBIN A1b 1.6 %; HEMOGLOBIN Ao 85.7 %; HEMOGLOBIN LA1C 2.1 %; HEMOGLOBIN P3 3.5 %
[2017-02-14 19:27] LABS: BLOOD, URINE NEG (NEG); GLUCOSE,URINE NEG (NEG); KETONE, URINE 15 mg/dL (NEG); NITRITE,URINE NEG (NEG)
[2017-02-14 19:29] LABS: URINE COLOR YELLOW (YELLW/STRAW)
[2017-02-14 19:32] LABS: COMMENT (UR) CULT NOT INDICATED; CULTURE IF INDICATED CULT NOT INDICATED; RBC, URINE 0-2 /hpf (0-3); SQUAMOUS EPITHELIAL CELL URINE 0-5 /hpf (0-5); WBC, URINE 0-2 /hpf (0-5)
[2017-02-14] MEDS: SODIUM CHLORIDE 0.9% FLUSH 10 ML FLUSH IV FLUSH SCH (19:57)
[2017-02-14] MEDS: DOCUSATE SODIUM 50 MG/SENNA 8.6 MG TAB PO SCH ×2 (19:58→20:00)
[2017-02-15] VITALS: BP 156/55; PULSE 56; RESP 24; TEMP 97.8; O2SAT 94
[2017-02-15 04:00] VITALS: BP 145/71; PULSE 72; RESP 15; TEMP 97.5; O2SAT 94
[2017-02-15 06:02] LABS: AUTOMATED NEUTROPHIL # 6.9 TH/MM3 (1.8-7.7); BASOPHIL # 0.1 TH/MM3 (0-0.2); BASOPHIL % 0.7 % (0.0-2.0); HEMO FLAGS DIFF FINAL; LYMPH % 22.3 % (9.0-44.0); LYMPHOCYTE # 2.2 TH/MM3 (1.0-4.8); MEAN CELL VOLUME 89.6 FL (80.0-100.0); MEAN CORPUSCULAR HEMOGLOBIN 30.7 PG (27.0-34.0); MEAN CORPUSCULAR HGB CONC 34.3 % (32.0-36.0); MONO % 5.5 % (0.0-8.0); NEUT % 71.5 % (16.0-70.0); PLATELET COUNT 102 TH/MM3 (150-450); RED BLOOD COUNT 5.46 MIL/MM3 (4.50-5.90); RED CELL DISTRIBUTION WIDTH 12.1 % (11.6-17.2); WHITE BLOOD COUNT 9.7 TH/MM3 (4.0-11.0)
[2017-02-15 06:08] LABS: CHLORIDE 109 MEQ/L (98-107); POTASSIUM 3.7 MEQ/L (3.5-5.1); SODIUM (NA) 143 MEQ/L (136-145)
[2017-02-15 06:13] LABS: ANION GAP 10 MEQ/L (5-15); BICARBONATE 24.3 MEQ/L (21.0-32.0)
[2017-02-15 06:25] LABS: ALKALINE PHOSPHATASE 66 U/L (45-117); ALT (GPT) 56 U/L (12-78); AST (GOT) 36 U/L (15-37); BLOOD UREA NITROGEN 23 MG/DL (7-18); GLOMERULAR FILTRATION RATE 50 ML/MIN (>89); TOTAL BILIRUBIN ADULT 0.9 MG/DL (0.2-1.0)
[2017-02-15 08:00] VITALS: BP 167/77; PULSE 60; PULSE 73; RESP 17; TEMP 97.9; O2SAT 94
[2017-02-15 09:00] VITALS: BP 155/72; PULSE 88; RESP 15; O2SAT 96
[2017-02-15] MEDS ORDERED: INFLUENZA VIRUS VACCINE (QUADRIVALENT) 0.5 ML SYR IM ONE (09:00)
[2017-02-15] MEDS: DOCUSATE SODIUM 50 MG/SENNA 8.6 MG TAB PO SCH (09:00)
[2017-02-15] MEDS: DOXAZOSIN MESYLATE 4 MG TAB PO SCH (09:40)
[2017-02-15] MEDS: POTASSIUM CHLORIDE 10 MEQ CAP PO SCH (09:40)
[2017-02-15] MEDS: FOLIC ACID 1 MG TAB PO SCH (09:40)
[2017-02-15] MEDS: cloNIDine HCL 0.1 MG TAB PO SCH (09:40)
[2017-02-15] MEDS: SODIUM CHLORIDE 0.9% FLUSH 10 ML FLUSH IV FLUSH SCH (09:41)
[2017-02-15] MEDS ORDERED: SODIUM CHLOR 0.9% 1000 ML INJ 1,000 ML IV SCH (09:45)
--- NOTE | 2017-02-15 09:56 | HHI.PR ---
Subjective Remarks denies cp/son tongue swelling has resolved creatinine increased Objective Vitals Vital Signs Date Time Temp Pulse Resp B/P Pulse Ox O2 Delivery O2 Flow Rate FiO2 02/15/17 04:00 97.5 72 15 145/71 94 02/15/17 00:00 97.8 56 24 156/55 94 02/14/17 20:00 98.2 78 25 140/77 96 02/14/17 20:00 79 02/14/17 20:00 96 21 02/14/17 17:21 98.0 78 18 132/68 02/14/17 13:21 98.2 77 21 175/88 I/O 02/14/17 02/14/17 02/14/17 02/15/17 02/15/17 02/15/17 07:00 15:00 23:00 07:00 15:00 23:00 Intake Total 900 ml Output Total 275 ml 325 ml Balance -275 ml 900 ml -325 ml Intake IV Total 900 ml Output Urine Total 275 ml 325 ml # Voids 2 Result Diagram: 02/15/1746 02/15/17 0546 Objective Remarks AAOx3 clear lungs BL tongue swelling resolved Procedures none Medications and IVs Current Medications Medications (Trade) Dose Ordered Sig/Zulema Route Start Time Stop Time Status Last Admin (Catapres) 0.1 mg BID PO 02/14/17 10:00 02/14/17 19:57 (Folate) 1 mg DAILY PO 02/14/17 10:00 02/14/17 11:30 (KCl) 10 meq DAILY PO 02/14/17 10:00 02/14/17 11:34 (Ultram) 50 mg Q6H PRN PO 02/14/17 09:15 (NS Flush) 2 ml UNSCH PRN IV FLUSH 02/14/17 09:15 (NS Flush) 2 ml BID IV FLUSH 02/14/17 21:00 02/14/17 19:57 (Tylenol) 650 mg Q4H PRN PO 02/14/17 09:15 (Zofran Inj) 4 mg Q6H PRN IVP 02/14/17 09:15 (Tracee-Colace) 1 tab BID PO 02/14/17 21:00 (Milk Of Magnesia Liq) 30 ml Q12H PRN PO 02/14/17 09:15 (Senokot) 17.2 mg Q12H PRN PO 02/14/17 09:15 (Dulcolax Supp) 10 mg DAILY PRN RECTAL 02/14/17 09:15 (Lactulose Liq) 30 ml DAILY PRN PO 02/14/17 09:15 (Cardura) 4 mg DAILY PO 02/14/17 15:00 02/14/17 16:48 A/P Problem List: (1) Angioedema ICD Code: T78.3XXA Status: Acute Plan: Was placed under out patient observation in the medical floor and treated supportively with oxygen. The patient was administered IV Solu-Medrol in the emergency department, started on prednisone once in the floor. Tongue swelling has resolved. Complement C4 within normal range. Likely not hereditary and edema. Continue steroid taper (2) Accelerated essential hypertension ICD Code: I10 Status: Resolved Plan: Patient had a severe exacerbation of hypertension with a systolic blood pressure in the 180s. Lisinopril discontinued secondary to angioedema. Metoprolol held due to bradycardia noticed on admission. Clonidine continued and the patient was started on Cardura 4 mg by mouth daily. BP much better today. I will resume amlodipine at a higher dose than taken at home. I will start the patient on amlodipine 5 mg by mouth daily. I will order lipid profile. (3) Polycythemia ICD Code: D75.1 Status: Acute Plan: Likely secondary to hemoconcentration. However given the concomitant presentation of accelerated hypertension, erythropoietin producing neoplasms should also be considered. I will check erythropoietin and fariba 2 mutation - pending. Hemoglobin trended down, suspect most likely secondary to hemoconcentration. (4) Hyperglycemia ICD Code: R73.9 Status: Acute Plan: Likely steroid induced. I will order hemoglobin A1c. (5) NAVEED (acute kidney injury) ICD Code: N17.9 Status: Acute Plan: Retina went up to 1.4. Suspect prerenal acidemia from dehydration since patient also had increased hemoglobin likely due to hemoconcentration. I will start the patient IV fluids and recheck creatinine later. Check urine eosinophils to rule out acute interstitial nephritis. I will recheck creatinine later today and if stable will consider discharging the patient home. Assessment and Plan DVT prophylaxis: SCDs. Discharge Planning Will likely discharge later today if creatinine improving after IV fluids. Problem Qualifiers (1) Angioedema: Qualified Code: T78.3XXA - Angioedema, initial encounter Luis Carlos Esposito MD Feb 15, 2017 09:56
[2017-02-15] MEDS ORDERED: CARD4TAB2 PO (09:58)
--- NOTE | 2017-02-15 09:59 | HHI.DCPOC ---
Discharge Care Plan Diagnosis: (1) Accelerated hypertension (2) Polycythemia (3) Angioedema (4) Accelerated essential hypertension (5) Hyperglycemia (6) NAVEED (acute kidney injury) Goals to Promote Your Health * To prevent worsening of your condition and complications * To maintain your health at the optimal level Directions to Meet Your Goals Take your medications as prescribed Follow your dietary instruction Follow activity as directed Keep your appointments as scheduled Take your immunizations and boosters as scheduled If your symptoms worsen call your PCP, if no PCP go to Urgent Care Center or Emergency Room Smoking is Dangerous to Your Health. Avoid second hand smoke Call the 24-hour hour crisis hotline for domestic abuse at Luis Carlos Esposito MD Feb 15, 2017 09:59
[2017-02-15] MEDS ORDERED: amLODIPine BESYLATE 5 MG TAB PO SCH (10:00)
[2017-02-15 13:18] VITALS: BP 176/88; PULSE 58; RESP 19; TEMP 98.6; O2SAT 98
[2017-02-15 15:52] LABS: POTASSIUM 3.7 MEQ/L (3.5-5.1)
[2017-02-15 15:55] LABS: BICARBONATE 24.8 MEQ/L (21.0-32.0)
--- NOTE | 2017-02-15 16:47 | HHI.DS ---
Discharge Summary Admission Date Feb 14, 2017 at 08:11 Discharge Date: Feb 15, 2017 Admitting Diagnosis Angioedema (1) Angioedema ICD Code: T78.3XXA Diagnosis: Principal (2) Accelerated essential hypertension ICD Code: I10 Diagnosis: Principal (3) Polycythemia ICD Code: D75.1 Diagnosis: Principal (4) Hyperglycemia ICD Code: R73.9 Diagnosis: Principal (5) NAVEED (acute kidney injury) ICD Code: N17.9 Diagnosis: Principal Procedures none Brief History - From Admission This is a 67-year-old male with past medical history significant for hypertension who states that recently was started on many blood pressure medications prior to an elective eye surgery. The patient states that he was started on many medications including lisinopril which she started taking on January 02. The patient presents complaining of tongue swelling. He states he woke up around 5 AM with tongue swelling however he denies any shortness of breath, denies chest pain denies palpitations, denies dizziness, denies fevers or chills, denies diarrhea. He states that he has never had a similar reaction in the past. The patient was seen in emergency department and as per ED records the patient was thought to have a large edema and given IV steroids. Patient states that the tongue swelling localized on the right side of his tongue is improving and denies shortness of breath currently. CBC/BMP: 02/15/17 0546 02/15/17 1538 Significant Findings Laboratory Tests Test 02/14/17 02/14/17 02/15/17 02/15/17 09:45 18:30 05:46 15:38 Red Blood Count 5.97 MIL/MM3 (4.50-5.90) Hemoglobin 18.1 GM/DL (13.0-17.0) Hematocrit 54.5 % (39.0-51.0) Platelet Count 118 TH/MM3 102 TH/MM3 (150-450) (150-450) Mean Platelet Volume 11.1 FL (7.0-11.0) Estimat Glomerular Filtration 74 ML/MIN (>89) 50 ML/MIN (>89) 60 ML/MIN (>89) Rate Random Glucose 132 MG/DL 125 MG/DL (74-106) (74-106) Aspartate Amino Transf 42 U/L (15-37) (AST/SGOT) C-Reactive Protein 0.37 MG/DL (0.00-0.30) Urine Ketones 15 mg/dL (NEG) Neutrophils (%) (Auto) 71.5 % (16.0-70.0) Chloride Level 109 MEQ/L 110 MEQ/L (98-107) (98-107) Blood Urea Nitrogen 23 MG/DL (7-18) 20 MG/DL (7-18) Creatinine 1.40 MG/DL (0.60-1.30) Albumin 3.3 GM/DL (3.4-5.0) PE at Discharge AAOx3 clear lungs BL tongue swelling resolved Hospital Course (1) Angioedema Was placed under out patient observation in the medical floor and treated supportively with oxygen. The patient was administered IV Solu-Medrol in the emergency department Tongue swelling has resolved. Complement C4 within normal range. Likely not hereditary and edema. Did not require any further steroids. (2) Accelerated essential hypertension Patient had a severe exacerbation of hypertension with a systolic blood pressure in the 180s. Lisinopril discontinued secondary to angioedema. Metoprolol held due to bradycardia noticed on admission. Clonidine continued and the patient was started on Cardura 4 mg by mouth daily. BP much better today. amlodipine resumed at a higher dose than taken at home. Lipid profile pending. (3) Polycythemia Likely secondary to hemoconcentration. However given the concomitant presentation of accelerated hypertension, erythropoietin producing neoplasms should also be considered. I will check erythropoietin and fariba 2 mutation - pending. Hemoglobin trended down, suspect most likely secondary to hemoconcentration. (4) Hyperglycemia Likely steroid induced. Hemoglobin A1C ordered and pending on DC. (5) NAVEED (acute kidney injury) Creatinine went up to 1.4. Suspected prerenal azotemia from dehydration since patient also had increased hemoglobin likely due to hemoconcentration. Treated with IV fluids Urine no falls ordered and pending on discharge. Repeat BMP showed improved creatinine of 1.2. Will DC home. DVT prophylaxis: SCDs. Discharge Disposition: Discharge Home Discharge Time: <= 30 minutes Discharge Instructions DIET: Follow Instructions for: Heart Healthy Diet Activities you can perform: Regular-No Restrictions Follow up Referrals: PCP Follow-up - 2-3 Days New Medications: Amlodipine (Norvasc) 5 Mg Tab 5 MG PO DAILY Blood Pressure Management #31 TAB Doxazosin (Cardura) 4 Mg Tab 4 MG PO DAILY Blood Pressure Management #31 TAB Continued Medications: Clonidine (Clonidine) 0.1 Mg Tab 0.1 MG PO BID Blood Pressure Management #60 Ref 0 TAB Folic Acid (Folic Acid) 400 Mcg Tab 1 MG PO DAILY Nutritional Supplement Ref 0 TAB Tramadol (Tramadol) 50 Mg Tab 50 MG PO Q6H PRN PAIN Ref 0 TAB Discontinued Medications: Amlodipine (Amlodipine) 2.5 Mg Tab 1 MG PO DAILY Blood Pressure Management #30 Ref 0 TAB Furosemide (Furosemide) 20 Mg Tab 20 MG PO DAILY #30 Ref 0 TAB Hydrochlorothiazide (Hydrochlorothiazide) 12.5 Mg Cap 12.5 MG PO DAILY #30 Ref 0 CAP Metoprolol Tartrate (Metoprolol Tartrate) 50 Mg Tab Unknown Dose PO BID #60 Ref 0 TAB Potassium Chloride ER (Potassium Chloride ER) 10 Meq Cap 10 MEQ PO DAILY Electrolyte Replacement #30 Ref 0 CAP ([BP med]) Luis Carlos Esposito MD Feb 15, 2017 16:47
[2017-02-15] MEDS ORDERED: AMLO10TA2 PO (16:48)
[2017-02-15 19:16] LABS: LDL CHOLESTEROL 110 MG/DL (0-99)
[2017-02-16 13:05] LABS: HEMOGLOBIN A1b 1.6 %; HEMOGLOBIN Ao 86.5 %; HEMOGLOBIN LA1C 1.3 %; HEMOGLOBIN P3 3.4 %
== END 2017-02-15 18:19 | disposition home or self-care (01) ==
LOC: PHED 06:39 → PHEDA 08:11 → PHICU 09:25
PROVIDERS: ADMIT Hospitalist; ATTEND Hospitalist
DX: T78.3XXA Angioneurotic edema, initial encounter (principal); I10 Essential (primary) hypertension; D75.1 Secondary polycythemia; R73.9 Hyperglycemia, unspecified; N17.9 Acute kidney failure, unspecified; R00.1 Bradycardia, unspecified; R13.10 Dysphagia, unspecified; E78.00 Pure hypercholesterolemia, unspecified; M19.90 Unspecified osteoarthritis, unspecified site; Z79.899 Other long term (current) drug therapy; F12.90 Cannabis use, unspecified, uncomplicated
CPT/HCPCS: 80048; 80053; 80061; 81001; 82668; 83036; 85025; 85652; 86140; 86160; 87205; 96374; 96375; 99285; G0378; J0360; J1200; J2930; J7030